=== PATIENT | male | born 1955 | race African-American/Black ===

== ENCOUNTER 2022-02-20 11:11 | Inpatient (IN) | payer OTHER ==
[~2022-02-20] VITALS: Ht 182.9 cm; Wt 102.1 kg
[2022-02-20 13:17] LABS: BASOPHILS % 0.4 % (0.0-2.0); EOSINOPHILS % 1.3 % (0.0-5.0); HEMOGLOBIN. 14.2 g/dL (14.0-18.0); LYMPHOCYTES % 30.9 % (20.0-50.0); MEAN CORPUSCULAR HEMOGLOBIN 29.6 pg (28.0-32.0); MEAN CORPUSCULAR VOLUME 87.6 fL (80.0-94.0); MEAN PLATELET VOLUME 8.8 fl (7.4-10.4); MONOCYTES % 6.5 % (2.0-8.0); NEUTROPHILS % 60.9 % (40.0-76.0); PLATELET 167 x1000/uL (130-400); RED BLOOD CELL COUNT 4.79 mill/uL (4.7-6.1)
[2022-02-20 13:24] LABS: CHLORIDE 113 mEq/L (98-107)
[2022-02-20] MEDS ORDERED: FUROSEMIDE 20MG/2ML VIAL IVP NR (15:00)
[2022-02-20] MEDS ORDERED: DIPHENHYDRAMINE 50MG/ML VIAL IV PRN (15:15)
[2022-02-20] MEDS ORDERED: ACETAMINOPHEN 325MG TABLET PO PRN (15:15)
[2022-02-20] MEDS ORDERED: IPRATROPIUM/ALBUTEROL 0.5-3(2.5)MG/3ML NEB HHN PRN (15:15)
[2022-02-20] MEDS ORDERED: CLONIDINE 0.1MG TABLET PO PRN (15:15)
[2022-02-20] MEDS ORDERED: ONDANSETRON HCL 4MG/2ML INJ IV PRN (15:15)
[2022-02-20] MEDS: ENOXAPARIN 40MG/0.4ML SYR SUBCUT SCH (16:19)
[2022-02-20] MEDS: FUROSEMIDE 40MG/4ML VIAL IV SCH (19:44)
[2022-02-20 19:45] VITALS: BP 134/89
[2022-02-20 20:00] VITALS: BP 134/89
[2022-02-20] MEDS: CARVEDILOL 3.125 MG TABLET PO SCH (20:36)
[2022-02-20] MEDS ORDERED: POTASSIUM CHLORIDE 20MEQ TABLET SR PO NR (21:45)
[2022-02-20] MEDS ORDERED: HYDROCODONE/ACETAMINOPHEN 5/325MG TABLET PO PRN (23:00)
[2022-02-21] VITALS: BP 132/52
[2022-02-21] MEDS ORDERED: PARO-41 PO (01:00)
[2022-02-21] MEDS ORDERED: ATOR40TA70 PO (01:00)
[2022-02-21] MEDS ORDERED: LISI2.5T47 PO (01:00)
[2022-02-21 04:00] VITALS: BP 141/88
[2022-02-21] MEDS ORDERED: *PATIENT'S OWN MEDICATION STORAGE XX SCH (05:00)
[2022-02-21] MEDS: FUROSEMIDE 40MG/4ML VIAL IV SCH ×2 (05:35→17:03)
[2022-02-21 08:00] VITALS: BP 122/68
[2022-02-21 08:03] LABS: BASOPHILS % 0.2 % (0.0-2.0); EOSINOPHILS % 0.1 % (0.0-5.0); HEMOGLOBIN. 13.4 g/dL (14.0-18.0); LYMPHOCYTES % 13.6 % (20.0-50.0); MEAN CORPUSCULAR HEMOGLOBIN 29.5 pg (28.0-32.0); MEAN CORPUSCULAR VOLUME 85.9 fL (80.0-94.0); MEAN PLATELET VOLUME 8.6 fl (7.4-10.4); MONOCYTES % 6.6 % (2.0-8.0); NEUTROPHILS % 79.5 % (40.0-76.0); PLATELET 166 x1000/uL (130-400); RED BLOOD CELL COUNT 4.54 mill/uL (4.7-6.1); RED CELL DISTRIBUTION WIDTH 13.6 % (11.6-14.6)
[2022-02-21] MEDS: CARVEDILOL 3.125 MG TABLET PO SCH ×2 (08:15→20:30)
[2022-02-21 08:26] LABS: CHLORIDE 105 mEq/L (98-107)
[2022-02-21 08:35] LABS: HDL CHOLESTEROL 30 mg/dL (40-59); LDL CHOLESTEROL 37 mg/dL (5-100)
[2022-02-21] MEDS ORDERED: POTASSIUM CHLORIDE 20MEQ TABLET SR PO SCH (09:00)
[2022-02-21] MEDS ORDERED: FUROSEMIDE 40MG/4ML VIAL IV SCH (09:00)
[2022-02-21] MEDS: KCL 20MEQ/100ML PREMIX 100 ML IV SCH ×2 (10:34→13:21)
[2022-02-21 12:00] VITALS: BP 128/86
[2022-02-21 16:00] VITALS: BP 122/81
[2022-02-21] MEDS: ENOXAPARIN 40MG/0.4ML SYR SUBCUT SCH (16:38)
[2022-02-21 17:35] LABS: CLARITY URINE CLEAR (CLEAR); COLOR URINE DARK YELLOW (YELLOW); KETONES URINE NEGATIVE (NEGATIVE); LEUKOCYTE ESTERASE URINE 2+ (NEGATIVE); NITRITE URINE NEGATIVE (NEGATIVE); OCCULT BLOOD URINE 3+ (NEGATIVE); PROTEIN URINE 2+ (NEGATIVE)
[2022-02-21] MEDS ORDERED: NALOXONE HCL 0.4MG/ML VIAL IV PRN (18:15)
[2022-02-21 20:00] VITALS: BP 111/67
[2022-02-21] MEDS ORDERED: ZOLPIDEM TARTRATE 5MG TABLET PO PRN (21:00)
[2022-02-22] VITALS: BP 122/74
[2022-02-22 04:00] VITALS: BP 117/79
[2022-02-22] MEDS: FUROSEMIDE 40MG/4ML VIAL IV SCH ×2 (05:39→17:25)
[2022-02-22 08:00] VITALS: BP 142/87
[2022-02-22] MEDS: CARVEDILOL 3.125 MG TABLET PO SCH ×2 (08:10→20:45)
[2022-02-22 08:42] LABS: BASOPHILS % 0.3 % (0.0-2.0); EOSINOPHILS % 0.5 % (0.0-5.0); HEMATOCRIT. 41.7 % (42.0-52.0); HEMOGLOBIN. 14.4 g/dL (14.0-18.0); LYMPHOCYTES % 23.2 % (20.0-50.0); MEAN CORPUSCULAR HEMOGLOBIN 29.9 pg (28.0-32.0); MEAN CORPUSCULAR VOLUME 86.7 fL (80.0-94.0); MONOCYTES % 8.7 % (2.0-8.0); NEUTROPHILS % 67.3 % (40.0-76.0); PLATELET 181 x1000/uL (130-400); RED BLOOD CELL COUNT 4.81 mill/uL (4.7-6.1); RED CELL DISTRIBUTION WIDTH 13.8 % (11.6-14.6)
[2022-02-22 08:51] LABS: CHLORIDE 106 mEq/L (98-107)
[2022-02-22] MEDS ORDERED: POTASSIUM CHLORIDE 20MEQ TABLET SR PO NR (11:13)
[2022-02-22] MEDS ORDERED: POTASSIUM CHLORIDE INJ 40 MEQ in DEXT 5% WATER 250 ML IV STA (11:13)
[2022-02-22 12:00] VITALS: BP 108/83
[2022-02-22] MEDS: KCL 20MEQ/100ML X 2 FOR TOTAL KCL 40MEQ/200ML IV SCH ×2 (13:13→15:24)
[2022-02-22] MEDS: ENOXAPARIN 40MG/0.4ML SYR SUBCUT SCH (15:24)
[2022-02-22] MEDS ORDERED: CEFTRIAXONE 1 G PREMIX 50 ML IV SCH (15:45)
[2022-02-22 16:00] VITALS: BP 118/81
[2022-02-22] MEDS ORDERED: CEFTRIAXONE 1,000 MG in DEXTROSE 5% WATER 50 ML IV SCH (17:00)
[2022-02-22 20:00] VITALS: BP 113/67
[2022-02-23] VITALS: BP 135/91
[2022-02-23 04:00] VITALS: BP 127/72
[2022-02-23] MEDS: FUROSEMIDE 40MG/4ML VIAL IV SCH ×3 (05:05→20:07)
[2022-02-23 06:54] LABS: BASOPHILS % 0.5 % (0.0-2.0); EOSINOPHILS % 0.3 % (0.0-5.0); HEMATOCRIT. 44.3 % (42.0-52.0); HEMOGLOBIN. 15.1 g/dL (14.0-18.0); LYMPHOCYTES % 12.1 % (20.0-50.0); MEAN CORPUSCULAR HEMOGLOBIN 29.9 pg (28.0-32.0); MEAN CORPUSCULAR VOLUME 87.8 fL (80.0-94.0); MEAN PLATELET VOLUME 9.2 fl (7.4-10.4); MONOCYTES % 6.2 % (2.0-8.0); NEUTROPHILS % 80.9 % (40.0-76.0); PLATELET 213 x1000/uL (130-400); RED BLOOD CELL COUNT 5.04 mill/uL (4.7-6.1); RED CELL DISTRIBUTION WIDTH 13.9 % (11.6-14.6)
[2022-02-23 07:50] LABS: CHLORIDE 102 mEq/L (98-107)
[2022-02-23 08:00] VITALS: BP 147/99
[2022-02-23] MEDS: CARVEDILOL 3.125 MG TABLET PO SCH ×2 (09:41→20:07)
[2022-02-23 12:00] VITALS: BP 118/76
[2022-02-23 16:00] VITALS: BP 146/95
[2022-02-23] MEDS: TAMSULOSIN HCL 0.4MG SR CAPSULE PO SCH (17:17)
[2022-02-23] MEDS: FINASTERIDE 5MG TABLET PO SCH (17:17)
[2022-02-23] MEDS: ENOXAPARIN 40MG/0.4ML SYR SUBCUT SCH (17:17)
[2022-02-23] MEDS ORDERED: LIDOCAINE HCL 2% JELLY 5ML TOP NR ×2 (18:00→18:30)
[2022-02-23 20:00] VITALS: BP 122/73
[2022-02-24] VITALS: BP 98/55
[2022-02-24 04:44] VITALS: BP 106/58
[2022-02-24] MEDS: FUROSEMIDE 40MG/4ML VIAL IV SCH (05:58)
[2022-02-24 06:33] LABS: BASOPHILS % 0.1 % (0.0-2.0); EOSINOPHILS % 0.8 % (0.0-5.0); HEMATOCRIT. 38.1 % (42.0-52.0); HEMOGLOBIN. 13.2 g/dL (14.0-18.0); LYMPHOCYTES % 23.6 % (20.0-50.0); MEAN CORPUSCULAR HEMOGLOBIN 30.3 pg (28.0-32.0); MEAN CORPUSCULAR VOLUME 87.3 fL (80.0-94.0); MEAN PLATELET VOLUME 9.5 fl (7.4-10.4); MONOCYTES % 9.7 % (2.0-8.0); NEUTROPHILS % 65.8 % (40.0-76.0); PLATELET 161 x1000/uL (130-400); RED BLOOD CELL COUNT 4.36 mill/uL (4.7-6.1); RED CELL DISTRIBUTION WIDTH 13.6 % (11.6-14.6)
[2022-02-24 06:52] LABS: CHLORIDE 103 mEq/L (98-107)
[2022-02-24 08:00] VITALS: BP 107/62
[2022-02-24] MEDS: FINASTERIDE 5MG TABLET PO SCH (08:46)
[2022-02-24] MEDS: TAMSULOSIN HCL 0.4MG SR CAPSULE PO SCH (08:46)
[2022-02-24] MEDS: CARVEDILOL 3.125 MG TABLET PO SCH (08:47)
[2022-02-24] MEDS ORDERED: POTASSIUM CHLORIDE 20MEQ TABLET SR PO NR (10:00)
[2022-02-24 12:00] VITALS: BP 103/60
[2022-02-24] MEDS ORDERED: FINA5TAB11 PO (12:39)
[2022-02-24] MEDS ORDERED: COR3 PO (12:39)
[2022-02-24] MEDS ORDERED: TAMS-11 PO (12:39)
[2022-02-24] MEDS ORDERED: FURO40TA5 MT (12:39)
[2022-02-24] MEDS ORDERED: ENOXAPARIN 30MG/0.3ML SYR SUBCUT SCH (12:55)
[2022-02-24] MEDS ORDERED: POTASSIUM CHLORIDE 20MEQ TABLET SR PO SCH (15:00)
[2022-02-24 16:00] VITALS: BP 112/67
[2022-02-24 17:49] VITALS: BP 112/67
[2022-02-25] MEDS ORDERED: FUROSEMIDE 40MG TABLET PO SCH (09:00)
== END 2022-02-24 19:44 | disposition home or self-care (01) | DRG 194 ==
LOC: ER 11:11 → 8WST 14:39
PROVIDERS: ADMIT Internal Medicine; ATTEND Internal Medicine
DX: I11.0 Hypertensive heart disease with heart failure (principal); J96.00 Acute respiratory failure, unspecified whether with hypoxia or hypercapnia; I50.31 Acute diastolic (congestive) heart failure; I45.10 Unspecified right bundle-branch block; I25.10 Atherosclerotic heart disease of native coronary artery without angina pectoris; E11.9 Type 2 diabetes mellitus without complications; I77.810 Thoracic aortic ectasia; Z20.822 Contact with and (suspected) exposure to COVID-19; E78.5 Hyperlipidemia, unspecified; F32.A Depression, unspecified; R33.9 Retention of urine, unspecified; R80.9 Proteinuria, unspecified; N39.0 Urinary tract infection, site not specified; Z95.2 Presence of prosthetic heart valve; I25.2 Old myocardial infarction
CPT/HCPCS: 36415; 71045; 80048; 80053; 80061; 81003; 83036; 83735; 83880; 84153; 84443; 84484; 85025; 87426; 93005; 93306; 93970; 99285; J0696; J1650; J1940; J3480; J7060; G0103

== ENCOUNTER 2022-03-13 17:22 | Inpatient (IN) | payer OTHER ==
[~2022-03-13] VITALS: Ht 182.9 cm; Wt 96.2 kg
[~2022-03-13 17:22] MED LIST: COR3 PO; FINA5TAB11 PO; FURO40TA5 MT; PARO-41 PO; TAMS-11 PO
[2022-03-13 22:54] LABS: CLARITY URINE CLEAR (CLEAR); COLOR URINE YELLOW (YELLOW); KETONES URINE NEGATIVE (NEGATIVE); LEUKOCYTE ESTERASE URINE 2+ (NEGATIVE); NITRITE URINE NEGATIVE (NEGATIVE); OCCULT BLOOD URINE TRACE (NEGATIVE); PROTEIN URINE NEGATIVE (NEGATIVE); UROBILINOGEN URINE 0.2 E.U./dL (0.2-1.0)
[2022-03-13 22:55] LABS: BASOPHILS % 0.3 % (0.0-2.0); EOSINOPHILS % 0.8 % (0.0-5.0); HEMATOCRIT. 39.8 % (42.0-52.0); HEMOGLOBIN. 13.1 g/dL (14.0-18.0); LYMPHOCYTES % 11.8 % (20.0-50.0); MEAN CORPUSCULAR HEMOGLOBIN 29.7 pg (28.0-32.0); MEAN CORPUSCULAR VOLUME 90.2 fL (80.0-94.0); MEAN PLATELET VOLUME 8.8 fl (7.4-10.4); MONOCYTES % 9.5 % (2.0-8.0); NEUTROPHILS % 77.6 % (40.0-76.0); PLATELET 199 x1000/uL (130-400); RED BLOOD CELL COUNT 4.41 mill/uL (4.7-6.1); RED CELL DISTRIBUTION WIDTH 13.6 % (11.6-14.6)
[2022-03-13 23:00] LABS: CHLORIDE 105 mEq/L (98-107)
[2022-03-14 15:19] VITALS: BP 125/86
[2022-03-14 16:00] VITALS: BP 125/86
[2022-03-14] MEDS ORDERED: DOCUSATE SODIUM 100MG CAPSULE PO PRN (16:00)
[2022-03-14] MEDS ORDERED: GUAIFENESIN 200MG/10ML SUGAR FREE UDC PO PRN (16:00)
[2022-03-14] MEDS ORDERED: NA PHOS,M-B/NA PHOS,DI-BA ENEMA 118ML PR PRN (16:00)
[2022-03-14] MEDS ORDERED: MORPHINE SULFATE 2 MG/ML CPJ (NOT FOR IM USE) IV PRN (16:00)
[2022-03-14] MEDS ORDERED: ONDANSETRON HCL 4MG/2ML INJ IV PRN (16:00)
[2022-03-14] MEDS ORDERED: MAGNESIUM/ALUMINUM HYDROXIDE/SIMETHICONE 30ML UDC PO PRN (16:00)
[2022-03-14] MEDS ORDERED: IPRATROPIUM/ALBUTEROL 0.5-3(2.5)MG/3ML NEB NEB PRN (16:00)
[2022-03-14] MEDS ORDERED: HYDROCODONE/APAP 7.5/325MG 1 TAB TABLET PO PRN (16:00)
[2022-03-14] MEDS ORDERED: DIPHENHYDRAMINE 50MG/ML VIAL IV PRN (16:00)
[2022-03-14] MEDS ORDERED: ACETAMINOPHEN 650MG/20.3ML UDC GT PRN (16:00)
[2022-03-14] MEDS ORDERED: CLONIDINE 0.1MG TABLET PO PRN (16:00)
[2022-03-14] MEDS ORDERED: LORAZEPAM 2MG/ML CPJ IV PRN (16:00)
[2022-03-14] MEDS: ENOXAPARIN 40MG/0.4ML SYR SUBCUT SCH (16:30)
[2022-03-14] MEDS ORDERED: BRIM5DRO6 LEFTEYE (16:47)
[2022-03-14] MEDS ORDERED: LISI-186 PO (16:47)
[2022-03-14 20:00] VITALS: BP 121/58
[2022-03-15] VITALS: BP 115/78
[2022-03-15 04:00] VITALS: BP 119/79
[2022-03-15] MEDS ORDERED: DEXTROSE 50% WATER 50ML SYRINGE IV PRN (07:30)
[2022-03-15] MEDS: INSULIN LISPRO 100 UNITS/ML SUBCUT SCH ×4 (07:40→21:00)
[2022-03-15 08:00] VITALS: BP 119/77
[2022-03-15 08:47] LABS: CHLORIDE 106 mEq/L (98-107)
[2022-03-15] MEDS ORDERED: LEVOFLOXACIN 500MG PREMIX 100 ML IV NR (11:00)
[2022-03-15 12:00] VITALS: BP 106/72
[2022-03-15] MEDS: BLOOD SUGAR DIAGNOSTIC STRIP TEST SCH ×3 (12:02→21:00)
[2022-03-15 15:34] VITALS: BP 116/71
[2022-03-15] MEDS: ENOXAPARIN 40MG/0.4ML SYR SUBCUT SCH ×2 (16:30→16:33)
[2022-03-15 20:00] VITALS: BP 118/75
[2022-03-16] VITALS: BP 120/85
[2022-03-16 04:00] VITALS: BP 118/71
[2022-03-16] MEDS: BLOOD SUGAR DIAGNOSTIC STRIP TEST SCH ×4 (07:10→21:00)
[2022-03-16] MEDS: INSULIN LISPRO 100 UNITS/ML SUBCUT SCH ×4 (07:40→22:44)
[2022-03-16] MEDS ORDERED: NALOXONE HCL 0.4MG/ML VIAL IV PRN (07:45)
[2022-03-16 08:00] VITALS: BP 103/74
[2022-03-16] MEDS ORDERED: LEVOFLOXACIN 250MG PREMIX 50 ML IV SCH (11:00)
[2022-03-16 11:02] LABS: BASOPHILS % 0.2 % (0.0-2.0); EOSINOPHILS % 0.4 % (0.0-5.0); HEMATOCRIT. 36.4 % (42.0-52.0); HEMOGLOBIN. 12.2 g/dL (14.0-18.0); LYMPHOCYTES % 13.5 % (20.0-50.0); MEAN CORPUSCULAR HEMOGLOBIN 29.8 pg (28.0-32.0); MEAN CORPUSCULAR VOLUME 88.7 fL (80.0-94.0); MEAN PLATELET VOLUME 8.5 fl (7.4-10.4); MONOCYTES % 8.5 % (2.0-8.0); NEUTROPHILS % 77.4 % (40.0-76.0); PLATELET 219 x1000/uL (130-400); RED CELL DISTRIBUTION WIDTH 13.4 % (11.6-14.6)
[2022-03-16 11:34] LABS: CREATINE KINASE 178 IU/L (39-308)
[2022-03-16 12:00] VITALS: BP 126/78
[2022-03-16] MEDS: TAMSULOSIN HCL 0.4MG SR CAPSULE PO SCH (12:17)
[2022-03-16] MEDS: FINASTERIDE 5MG TABLET PO SCH (12:18)
[2022-03-16 16:00] VITALS: BP 117/88
[2022-03-16 20:00] VITALS: BP 121/81
[2022-03-17] VITALS: BP 106/72
[2022-03-17 04:00] VITALS: BP 131/78
[2022-03-17 06:18] LABS: BASOPHILS % 0.4 % (0.0-2.0); EOSINOPHILS % 0.9 % (0.0-5.0); HEMATOCRIT. 34.2 % (42.0-52.0); HEMOGLOBIN. 11.8 g/dL (14.0-18.0); LYMPHOCYTES % 18.7 % (20.0-50.0); MEAN CORPUSCULAR HEMOGLOBIN 30.5 pg (28.0-32.0); MEAN CORPUSCULAR VOLUME 88.4 fL (80.0-94.0); MEAN PLATELET VOLUME 8.2 fl (7.4-10.4); MONOCYTES % 9.8 % (2.0-8.0); NEUTROPHILS % 70.2 % (40.0-76.0); PLATELET 200 x1000/uL (130-400); RED BLOOD CELL COUNT 3.86 mill/uL (4.7-6.1); RED CELL DISTRIBUTION WIDTH 13.3 % (11.6-14.6)
[2022-03-17 06:49] LABS: PHOSPHORUS 4.5 mg/dL (2.5-4.9)
[2022-03-17] MEDS: BLOOD SUGAR DIAGNOSTIC STRIP TEST SCH ×4 (07:40→21:00)
[2022-03-17] MEDS: INSULIN LISPRO 100 UNITS/ML SUBCUT SCH ×4 (07:40→21:00)
[2022-03-17 08:00] VITALS: BP 116/80
[2022-03-17] MEDS: FINASTERIDE 5MG TABLET PO SCH (08:35)
[2022-03-17] MEDS: TAMSULOSIN HCL 0.4MG SR CAPSULE PO SCH (08:36)
[2022-03-17] MEDS ORDERED: LEVOFLOXACIN 250MG TABLET PO SCH (11:00)
[2022-03-17 12:00] VITALS: BP 110/81
[2022-03-17 16:00] VITALS: BP 112/77
[2022-03-17] MEDS ORDERED: LEVOFLOXACIN 250MG TABLET PO NR (17:00)
[2022-03-17 20:00] VITALS: BP 120/81
[2022-03-18] VITALS: BP 123/82
[2022-03-18 04:00] VITALS: BP 119/72
[2022-03-18 07:15] LABS: BASOPHILS % 0.3 % (0.0-2.0); EOSINOPHILS % 2.3 % (0.0-5.0); HEMATOCRIT. 34.8 % (42.0-52.0); HEMOGLOBIN. 11.8 g/dL (14.0-18.0); LYMPHOCYTES % 24.8 % (20.0-50.0); MEAN CORPUSCULAR HEMOGLOBIN 29.9 pg (28.0-32.0); MEAN CORPUSCULAR VOLUME 88.1 fL (80.0-94.0); MEAN PLATELET VOLUME 8.2 fl (7.4-10.4); MONOCYTES % 9.4 % (2.0-8.0); NEUTROPHILS % 63.2 % (40.0-76.0); PLATELET 212 x1000/uL (130-400); RED BLOOD CELL COUNT 3.95 mill/uL (4.7-6.1); RED CELL DISTRIBUTION WIDTH 13.2 % (11.6-14.6)
[2022-03-18 07:23] LABS: CHLORIDE 109 mEq/L (98-107)
[2022-03-18] MEDS: BLOOD SUGAR DIAGNOSTIC STRIP TEST SCH ×2 (07:39→12:34)
[2022-03-18] MEDS: INSULIN LISPRO 100 UNITS/ML SUBCUT SCH ×2 (07:40→12:34)
[2022-03-18 08:00] VITALS: BP 123/76
[2022-03-18] MEDS: FINASTERIDE 5MG TABLET PO SCH (09:01)
[2022-03-18] MEDS: TAMSULOSIN HCL 0.4MG SR CAPSULE PO SCH (09:01)
[2022-03-18] MEDS ORDERED: LEVOFLOXACIN 500MG TABLET PO SCH (11:00)
[2022-03-18 11:28] VITALS: BP 115/75
[2022-03-18 12:00] VITALS: BP 115/75
[2022-03-18] MEDS ORDERED: FUROSEMIDE 20MG TABLET PO SCH (12:30)
== END 2022-03-18 15:25 | disposition home or self-care (01) | DRG 469 ==
LOC: ER 17:22 → 8WST 03-14 04:58 → ENRESERV 03-14 14:33
PROVIDERS: ADMIT Internal Medicine; ATTEND Internal Medicine
DX: N17.0 Acute kidney failure with tubular necrosis (principal); R65.11 Systemic inflammatory response syndrome (SIRS) of non-infectious origin with acute organ dysfunction; E11.22 Type 2 diabetes mellitus with diabetic chronic kidney disease; N13.9 Obstructive and reflux uropathy, unspecified; I13.0 Hypertensive heart and chronic kidney disease with heart failure and stage 1 through stage 4 chronic kidney disease, or unspecified chronic kidney disease; I50.9 Heart failure, unspecified; I25.10 Atherosclerotic heart disease of native coronary artery without angina pectoris; N18.9 Chronic kidney disease, unspecified; R33.9 Retention of urine, unspecified; I50.30 Unspecified diastolic (congestive) heart failure; E78.5 Hyperlipidemia, unspecified; I77.810 Thoracic aortic ectasia; M54.50 Low back pain, unspecified; N40.1 Benign prostatic hyperplasia with lower urinary tract symptoms; I34.0 Nonrheumatic mitral (valve) insufficiency; K40.20 Bilateral inguinal hernia, without obstruction or gangrene, not specified as recurrent; I50.32 Chronic diastolic (congestive) heart failure; K57.30 Diverticulosis of large intestine without perforation or abscess without bleeding; Z95.1 Presence of aortocoronary bypass graft; Z95.3 Presence of xenogenic heart valve; Z88.6 Allergy status to analgesic agent; Z79.899 Other long term (current) drug therapy; Z79.84 Long term (current) use of oral hypoglycemic drugs; N13.6 Pyonephrosis
CPT/HCPCS: 36415; 71045; 74176; 76770; 80048; 80053; 81003; 82550; 82962; 83036; 83605; 83735; 83880; 84100; 84484; 85025; 87077; 87186; 93005; 99285; J1650; J1815; J1956; A4315